=== PATIENT | male | born 1950 | race Two or more races ===

== ENCOUNTER 2021-05-27 12:24 | Inpatient (IN) | payer MEDICARE ==
[~2021-05-27] VITALS: Ht 175.3 cm; Wt 70.0 kg
[2021-05-27 14:08] LABS: Urine Bacteria NONE SEEN /hpf (None Seen); Urine Blood TRACE /uL (Negative); Urine Hyaline Cast FEW /lpf (0 - 2); Urine Specific Gravity 1.013 (1.001-1.035); Urine WBC 1 /hpf (0 - 3)
[2021-05-27] MEDS ORDERED: ONDANSETRON HCL 4 MG/2 ML VIAL IV ONE (14:15)
[2021-05-27 14:22] LABS: Albumin 3.8 g/dL (3.4-5.0); Calcium 9.7 mg/dL (8.5-10.1); Magnesium 1.9 mg/dL (1.6-2.6); Potassium 3.7 mmol/L (3.5-5.1)
[2021-05-27 14:26] LABS: Amphetamine Screen, Urine NEGATIVE (NEGATIVE); Barbiturate Scree,Urine NEGATIVE (NEGATIVE); Benzodiazephine Screen, Urine NEGATIVE (NEGATIVE); Cannabinoid Screen, Urine NEGATIVE (NEGATIVE); Cocaine Screen, Urine NEGATIVE (NEGATIVE); Phencyclidine Screen, Urine NEGATIVE (NEGATIVE)
[2021-05-27 14:29] LABS: BUN/Creatinine Ratio 17.3; Bilirubin, Total 1.3 mg/dL (0.2-1.0); Total Protein 7.5 g/dL (6.4-8.2)
[2021-05-27 14:34] LABS: Opiate Scree,Urine POSITIVE (NEGATIVE)
[2021-05-27 14:40] LABS: Basophils # (auto) 0 10 ^3/uL (0-0.2); Basophils % (auto) 0.4 % (0.0-2.0); Eosinophils # (auto) 0 10 ^3/uL (0-0.8); Hematocrit 39.5 % (41.0-53.0); Hemoglobin 14.2 g/dL (13.5-17.5); Lymphocytes # (auto) 0.5 10 ^3/uL (0.4-5.4); Lymphocytes % (auto) 6.4 % (10.0-50.0); Mean Corpuscular Hemoglobin 42.2 pg (28.0-32.0); Mean Corpuscular Volume 117.4 fL (80.0-100.0); Monocytes # (auto) 0.5 10 ^3/uL (0-1.3); Monocytes % (auto) 6.4 % (0.0-12.0); Neutrophils # (auto) 7.1 10 ^3/uL (1.6-8.6); Neutrophils % (auto) 86.8 % (37.0-80.0); Platelet Count (auto) 130 10^3/uL (140-450); Red Blood Cells 3.37 10^6/uL (4.5-5.90); Red Cell Distribution Width 18.9 % (11.8-14.3); White Blood Cell 8.2 10^3/uL (4.4-10.8)
[2021-05-27] MEDS ORDERED: THIAMINE HCL 100 MG TAB PO ONE (15:00)
[2021-05-27] MEDS ORDERED: ASPirin-EC 81 mg tab PO ONE (16:30)
[2021-05-27] MEDS ORDERED: NITROGLYCERIN 0.4 MG SL TAB SL PRN (17:45)
[2021-05-27] MEDS ORDERED: SODIUM CHLORIDE 0.9% 1,000 ML IV ONE (17:45)
[2021-05-27] MEDS ORDERED: ACETAMINOPHEN 500 MG TAB PO PRN (17:45)
[2021-05-27] MEDS ORDERED: MULTIPLE VITAMIN TAB PO ONE (17:45)
[2021-05-27] MEDS ORDERED: MORPHINE SULF INJ 2 MG/ML SYRINGE 1ML IV PRN (17:45)
[2021-05-27] MEDS: MORPHINE SULF INJ 2 MG/ML SYRINGE 1ML IV PRN ×2 (18:29→23:59)
[2021-05-27] MEDS: ONDANSETRON HCL 4 MG/2 ML VIAL IV PRN (18:29)
[2021-05-27] MEDS: chlordiazePOXIDE HCL 25 MG CAP PO SCH ×2 (18:31→23:42)
[2021-05-27 22:15] VITALS: BP 145/112
[2021-05-27] MEDS: PANTOPRAZOLE 40 MG/10 ML VIAL INJ IV SCH (23:42)
[2021-05-28] MEDS: LABETALOL HCL 5 MG/ML 4ML SYRINGE IV PRN (01:18)
[2021-05-28] MEDS: MORPHINE SULF INJ 2 MG/ML SYRINGE 1ML IV PRN ×4 (01:22→20:46)
[2021-05-28] MEDS: HYDROcodone-ACET 5/325MG TAB PO PRN ×3 (01:24→18:51)
[2021-05-28 05:39] VITALS: BP 141/89
[2021-05-28] MEDS ORDERED: PRAV20TA3 PO (05:57)
[2021-05-28] MEDS ORDERED: POTA-180 PO (05:57)
[2021-05-28] MEDS ORDERED: RIVA10TA PO (05:57)
[2021-05-28] MEDS ORDERED: METF-370 PO (05:57)
[2021-05-28] MEDS ORDERED: MORP30SU PO (05:57)
[2021-05-28] MEDS ORDERED: FURO40TA4 PO (05:57)
[2021-05-28] MEDS ORDERED: CARV6.2551 PO (05:57)
[2021-05-28] MEDS ORDERED: TIZA4CAP PO (05:57)
[2021-05-28] MEDS: chlordiazePOXIDE HCL 25 MG CAP PO SCH ×5 (06:21→20:45)
[2021-05-28 06:42] LABS: Albumin 3.5 g/dL (3.4-5.0); BUN/Creatinine Ratio 19.3; Bilirubin, Total 1.2 mg/dL (0.2-1.0); Calcium 9.6 mg/dL (8.5-10.1)
[2021-05-28 07:34] LABS: Basophils # (auto) 0 10 ^3/uL (0-0.2); Basophils % (auto) 0.4 % (0.0-2.0); Eosinophils # (auto) 0 10 ^3/uL (0-0.8); Eosinophils % (auto) 0.2 % (0.0-7.0); Hematocrit 37.8 % (41.0-53.0); Hemoglobin 13.7 g/dL (13.5-17.5); Lymphocytes # (auto) 0.8 10 ^3/uL (0.4-5.4); Lymphocytes % (auto) 9.6 % (10.0-50.0); Mean Corpuscular Hemoglobin 42.3 pg (28.0-32.0); Mean Corpuscular Hgb Conc. 36.2 g/dL (32.0-36.0); Mean Corpuscular Volume 116.9 fL (80.0-100.0); Monocytes # (auto) 0.6 10 ^3/uL (0-1.3); Monocytes % (auto) 7.3 % (0.0-12.0); Neutrophils # (auto) 6.9 10 ^3/uL (1.6-8.6); Neutrophils % (auto) 82.5 % (37.0-80.0); Nucleated Red Blood Cells % 0.1 %; Platelet Count (auto) 129 10^3/uL (140-450); Red Blood Cells 3.23 10^6/uL (4.5-5.90); Red Cell Distribution Width 19.2 % (11.8-14.3); White Blood Cell 8.4 10^3/uL (4.4-10.8)
[2021-05-28 08:00] VITALS: BP 141/92
[2021-05-28 09:03] VITALS: BP 149/84
[2021-05-28] MEDS: PANTOPRAZOLE 40 MG/10 ML VIAL INJ IV SCH ×2 (09:04→20:45)
[2021-05-28] MEDS: ONDANSETRON HCL 4 MG/2 ML VIAL IV PRN (09:05)
[2021-05-28] MEDS: THIAMINE HCL 100 MG TAB PO SCH (09:05)
[2021-05-28] MEDS: MULTIPLE VITAMIN TAB PO SCH (09:05)
[2021-05-28] MEDS ORDERED: POTASSIUM CHL 20 Meq TABLET PO ONE (12:15)
[2021-05-28 13:00] VITALS: BP 141/92
[2021-05-28] MEDS ORDERED: LORazepam 2MG/ML-1ML VIAL IV ONE (16:15)
[2021-05-28 16:33] LABS: Folate (Folic Acid) 4.58 ng/mL (5.38-24)
[2021-05-28 16:44] VITALS: BP 158/85
[2021-05-28] MEDS ORDERED: dilTIAZem 25 MG/5 ML VIAL IV ONE ×2 (21:19→22:30)
[2021-05-28] MEDS ORDERED: DIGOXIN (250MCG/ML) 2 ML AMPULE ONE (21:19)
[2021-05-28 22:00] VITALS: BP 159/88
[2021-05-28] MEDS ORDERED: DIGOXIN (250MCG/ML) 2 ML AMPULE IV ONE (22:30)
[2021-05-29 05:00] VITALS: BP 175/98
[2021-05-29] MEDS: LABETALOL HCL 5 MG/ML 4ML SYRINGE IV PRN (05:56)
[2021-05-29] MEDS: MORPHINE SULF INJ 2 MG/ML SYRINGE 1ML IV PRN (05:56)
[2021-05-29 06:00] LABS: Potassium 3.3 mmol/L (3.5-5.1)
[2021-05-29] MEDS: chlordiazePOXIDE HCL 25 MG CAP PO SCH ×5 (06:01→22:10)
[2021-05-29 06:13] LABS: Albumin 3.4 g/dL (3.4-5.0); BUN/Creatinine Ratio 16.4; Bilirubin, Total 0.9 mg/dL (0.2-1.0); Calcium 9.6 mg/dL (8.5-10.1); Total Protein 6.9 g/dL (6.4-8.2)
[2021-05-29 07:18] LABS: Basophils # (auto) 0 10 ^3/uL (0-0.2); Eosinophils # (auto) 0 10 ^3/uL (0-0.8); Monocytes # (auto) 0.6 10 ^3/uL (0-1.3); Red Blood Cells 3.44 10^6/uL (4.5-5.90); White Blood Cell 7.3 10^3/uL (4.4-10.8)
[2021-05-29 07:20] LABS: Basophils % (auto) 0.3 % (0.0-2.0); Eosinophils % (auto) 0.5 % (0.0-7.0); Hematocrit 40.6 % (41.0-53.0); Hemoglobin 14.5 g/dL (13.5-17.5); Lymphocytes % (auto) 13.3 % (10.0-50.0); Mean Corpuscular Hemoglobin 42.2 pg (28.0-32.0); Mean Corpuscular Hgb Conc. 35.8 g/dL (32.0-36.0); Mean Corpuscular Volume 118.2 fL (80.0-100.0); Monocytes % (auto) 8.8 % (0.0-12.0); Neutrophils # (auto) 5.6 10 ^3/uL (1.6-8.6); Neutrophils % (auto) 77.1 % (37.0-80.0); Platelet Count (auto) 132 10^3/uL (140-450); Red Cell Distribution Width 19.2 % (11.8-14.3)
[2021-05-29] MEDS: PANTOPRAZOLE 40 MG/10 ML VIAL INJ IV SCH ×2 (10:13→22:10)
[2021-05-29] MEDS: MULTIPLE VITAMIN TAB PO SCH (10:14)
[2021-05-29] MEDS: FOLIC ACID 1 MG TAB PO SCH (10:14)
[2021-05-29] MEDS: THIAMINE HCL 100 MG TAB PO SCH (10:14)
[2021-05-29] MEDS ORDERED: LACTULOSE 20Gm/30ML SOLN PO PRN (10:15)
[2021-05-29 12:47] VITALS: BP 154/89
[2021-05-29] MEDS ORDERED: POTASSIUM EFFERVESENT TAB 25 MEQ PO ONE (13:00)
[2021-05-29 13:06] VITALS: BP 124/77
[2021-05-29 16:56] VITALS: BP 132/80
[2021-05-29] MEDS: HYDROcodone-ACET 5/325MG TAB PO PRN (20:14)
[2021-05-29 22:00] VITALS: BP 149/95
[2021-05-29] MEDS: CARVEDILOL 3.125 MG TAB PO SCH (22:09)
[2021-05-29] MEDS: GABAPENTIN 300 MG CAP PO SCH (22:09)
[2021-05-29] MEDS: PRAVASTATIN SODIUM 20 MG TAB PO SCH (22:09)
[2021-05-30 05:00] VITALS: BP 159/90
[2021-05-30] MEDS: chlordiazePOXIDE HCL 25 MG CAP PO SCH ×3 (06:00→13:29)
[2021-05-30] MEDS: GABAPENTIN 300 MG CAP PO SCH ×3 (06:00→21:40)
[2021-05-30 06:55] LABS: Potassium 3.3 mmol/L (3.5-5.1)
[2021-05-30 07:02] LABS: Albumin 3.2 g/dL (3.4-5.0); BUN/Creatinine Ratio 14.9; Bilirubin, Total 0.7 mg/dL (0.2-1.0); Total Protein 6.4 g/dL (6.4-8.2)
[2021-05-30 07:20] LABS: Basophils # (auto) 0 10 ^3/uL (0-0.2); Basophils % (auto) 0.6 % (0.0-2.0); Eosinophils # (auto) 0.1 10 ^3/uL (0-0.8); Eosinophils % (auto) 0.9 % (0.0-7.0); Hematocrit 39.7 % (41.0-53.0); Hemoglobin 14.2 g/dL (13.5-17.5); Lymphocytes # (auto) 0.8 10 ^3/uL (0.4-5.4); Lymphocytes % (auto) 12.9 % (10.0-50.0); Mean Corpuscular Hemoglobin 41.7 pg (28.0-32.0); Mean Corpuscular Hgb Conc. 35.7 g/dL (32.0-36.0); Mean Corpuscular Volume 116.7 fL (80.0-100.0); Monocytes # (auto) 0.5 10 ^3/uL (0-1.3); Neutrophils # (auto) 4.7 10 ^3/uL (1.6-8.6); Neutrophils % (auto) 77.6 % (37.0-80.0); Nucleated Red Blood Cells % 0.2 %; Platelet Count (auto) 117 10^3/uL (140-450); Red Cell Distribution Width 18.9 % (11.8-14.3); White Blood Cell 6.1 10^3/uL (4.4-10.8)
[2021-05-30 09:00] VITALS: BP 128/84
[2021-05-30] MEDS: POTASSIUM EFFERVESENT TAB 25 MEQ PO SCH (09:44)
[2021-05-30] MEDS: FOLIC ACID 1 MG TAB PO SCH (09:44)
[2021-05-30] MEDS: RIVAROXABAN 10 MG TAB PO SCH (09:45)
[2021-05-30] MEDS: FUROSEMIDE 40 MG TAB PO SCH (09:45)
[2021-05-30] MEDS: PANTOPRAZOLE 40 MG/10 ML VIAL INJ IV SCH ×2 (09:46→21:38)
[2021-05-30] MEDS: CARVEDILOL 3.125 MG TAB PO SCH ×2 (09:46→21:39)
[2021-05-30] MEDS: THIAMINE HCL 100 MG TAB PO SCH (09:46)
[2021-05-30] MEDS: MULTIPLE VITAMIN TAB PO SCH (09:47)
[2021-05-30 13:00] VITALS: BP 136/91
[2021-05-30 17:00] VITALS: BP 136/91
[2021-05-30] MEDS ORDERED: SODIUM CHLORIDE 0.9% 1,000 ML IV ONE (18:15)
[2021-05-30 20:38] VITALS: BP 120/56
[2021-05-30] MEDS: PRAVASTATIN SODIUM 20 MG TAB PO SCH (21:40)
[2021-05-30 22:00] VITALS: BP 130/86
[2021-05-31 05:00] VITALS: BP 158/98
[2021-05-31] MEDS: GABAPENTIN 300 MG CAP PO SCH ×3 (05:49→22:00)
[2021-05-31 07:08] LABS: Basophils # (auto) 0 10 ^3/uL (0-0.2); Basophils % (auto) 0.2 % (0.0-2.0); Eosinophils # (auto) 0 10 ^3/uL (0-0.8); Eosinophils % (auto) 0.3 % (0.0-7.0); Hemoglobin 15.2 g/dL (13.5-17.5); Lymphocytes # (auto) 0.8 10 ^3/uL (0.4-5.4); Lymphocytes % (auto) 8.6 % (10.0-50.0); Mean Corpuscular Hemoglobin 42.6 pg (28.0-32.0); Mean Corpuscular Volume 117.9 fL (80.0-100.0); Monocytes # (auto) 0.5 10 ^3/uL (0-1.3); Monocytes % (auto) 6.1 % (0.0-12.0); Neutrophils # (auto) 7.5 10 ^3/uL (1.6-8.6); Neutrophils % (auto) 84.8 % (37.0-80.0); Platelet Count (auto) 135 10^3/uL (140-450); Red Blood Cells 3.57 10^6/uL (4.5-5.90); Red Cell Distribution Width 18.5 % (11.8-14.3); White Blood Cell 8.8 10^3/uL (4.4-10.8)
[2021-05-31 07:18] LABS: Calcium 9.9 mg/dL (8.5-10.1); Potassium 3.4 mmol/L (3.5-5.1)
[2021-05-31 07:23] LABS: BUN/Creatinine Ratio 20.8; Total Protein 6.8 g/dL (6.4-8.2)
[2021-05-31 09:00] VITALS: BP 163/91
[2021-05-31] MEDS: PANTOPRAZOLE 40 MG/10 ML VIAL INJ IV SCH ×2 (09:18→22:21)
[2021-05-31] MEDS: FOLIC ACID 1 MG TAB PO SCH (09:18)
[2021-05-31] MEDS: THIAMINE HCL 100 MG TAB PO SCH (09:18)
[2021-05-31] MEDS: CARVEDILOL 3.125 MG TAB PO SCH ×2 (09:19→22:22)
[2021-05-31] MEDS: FUROSEMIDE 40 MG TAB PO SCH (09:19)
[2021-05-31] MEDS: POTASSIUM EFFERVESENT TAB 25 MEQ PO SCH (09:19)
[2021-05-31] MEDS: RIVAROXABAN 10 MG TAB PO SCH (09:20)
[2021-05-31] MEDS: MULTIPLE VITAMIN TAB PO SCH (09:20)
[2021-05-31] MEDS ORDERED: POTASSIUM EFFERVESENT TAB 25 MEQ PO ONE (11:45)
[2021-05-31] MEDS: LABETALOL HCL 5 MG/ML 4ML SYRINGE IV PRN (12:37)
[2021-05-31 13:00] VITALS: BP 167/110
[2021-05-31 17:00] VITALS: BP 133/84
[2021-05-31] MEDS: HYDROcodone-ACET 5/325MG TAB PO PRN (19:16)
[2021-05-31 22:00] VITALS: BP 134/94
[2021-05-31] MEDS: PRAVASTATIN SODIUM 20 MG TAB PO SCH (22:21)
[2021-06-01 05:00] VITALS: BP 116/69
[2021-06-01] MEDS: GABAPENTIN 300 MG CAP PO SCH ×3 (05:59→21:46)
[2021-06-01 06:06] LABS: Calcium 9.5 mg/dL (8.5-10.1); Potassium 4.2 mmol/L (3.5-5.1)
[2021-06-01 06:12] LABS: Albumin 2.3 g/dL (3.4-5.0); BUN/Creatinine Ratio 22.5; Bilirubin, Total 3.6 mg/dL (0.2-1.0); Total Protein 6.1 g/dL (6.4-8.2)
[2021-06-01 06:42] LABS: Basophils # (auto) 0 10 ^3/uL (0-0.2); Basophils % (auto) 0.3 % (0.0-2.0); Eosinophils # (auto) 0 10 ^3/uL (0-0.8); Eosinophils % (auto) 0.1 % (0.0-7.0); Hematocrit 41.2 % (41.0-53.0); Hemoglobin 14.5 g/dL (13.5-17.5); Lymphocytes # (auto) 0.6 10 ^3/uL (0.4-5.4); Lymphocytes % (auto) 6.5 % (10.0-50.0); Mean Corpuscular Hemoglobin 41.5 pg (28.0-32.0); Mean Corpuscular Hgb Conc. 35.1 g/dL (32.0-36.0); Mean Corpuscular Volume 118.1 fL (80.0-100.0); Monocytes # (auto) 0.5 10 ^3/uL (0-1.3); Monocytes % (auto) 4.9 % (0.0-12.0); Neutrophils # (auto) 8.6 10 ^3/uL (1.6-8.6); Neutrophils % (auto) 88.2 % (37.0-80.0); Nucleated Red Blood Cells % 0.1 %; Platelet Count (auto) 130 10^3/uL (140-450); Red Blood Cells 3.49 10^6/uL (4.5-5.90); Red Cell Distribution Width 18.7 % (11.8-14.3); White Blood Cell 9.7 10^3/uL (4.4-10.8)
[2021-06-01 09:00] VITALS: BP 105/60
[2021-06-01] MEDS: THIAMINE HCL 100 MG TAB PO SCH (09:21)
[2021-06-01] MEDS: PANTOPRAZOLE 40 MG/10 ML VIAL INJ IV SCH ×2 (09:21→21:45)
[2021-06-01] MEDS: CARVEDILOL 3.125 MG TAB PO SCH ×2 (09:21→21:46)
[2021-06-01] MEDS: FOLIC ACID 1 MG TAB PO SCH (09:21)
[2021-06-01] MEDS: MULTIPLE VITAMIN TAB PO SCH (09:22)
[2021-06-01] MEDS: POTASSIUM EFFERVESENT TAB 25 MEQ PO SCH (09:22)
[2021-06-01] MEDS: RIVAROXABAN 10 MG TAB PO SCH (09:22)
[2021-06-01] MEDS: FUROSEMIDE 40 MG TAB PO SCH (09:22)
[2021-06-01 09:38] VITALS: BP 116/64
[2021-06-01 13:00] VITALS: BP 123/80
[2021-06-01] MEDS: MORPHINE SULF INJ 2 MG/ML SYRINGE 1ML IV PRN (16:28)
[2021-06-01 17:00] VITALS: BP 112/75
[2021-06-01] MEDS: PRAVASTATIN SODIUM 20 MG TAB PO SCH (21:46)
[2021-06-01 22:00] VITALS: BP 110/72
[2021-06-02 05:00] VITALS: BP 78/47
[2021-06-02] MEDS: GABAPENTIN 300 MG CAP PO SCH ×2 (06:00→12:40)
[2021-06-02] MEDS ORDERED: LORazepam 2MG/ML-1ML VIAL IV PRN (07:30)
[2021-06-02 08:05] VITALS: BP 90/53
[2021-06-02 08:27] VITALS: BP 90/53
[2021-06-02] MEDS: MORPHINE SULF INJ 2 MG/ML SYRINGE 1ML IV PRN ×3 (09:25→18:05)
[2021-06-02] MEDS: FUROSEMIDE 40 MG TAB PO SCH (10:00)
[2021-06-02] MEDS: MULTIPLE VITAMIN TAB PO SCH (10:00)
[2021-06-02] MEDS: FOLIC ACID 1 MG TAB PO SCH (10:00)
[2021-06-02] MEDS: POTASSIUM EFFERVESENT TAB 25 MEQ PO SCH (10:00)
[2021-06-02] MEDS: THIAMINE HCL 100 MG TAB PO SCH (10:00)
[2021-06-02] MEDS: RIVAROXABAN 10 MG TAB PO SCH (10:00)
[2021-06-02] MEDS: PANTOPRAZOLE 40 MG/10 ML VIAL INJ IV SCH (10:00)
[2021-06-02] MEDS: CARVEDILOL 3.125 MG TAB PO SCH (10:00)
[2021-06-02] MEDS ORDERED: AMIODARONE 450mg/250ml AE 250 ML IV SCH ×2 (11:00→17:00)
[2021-06-02 12:22] VITALS: BP 52/37
[2021-06-02 16:28] VITALS: BP 70/48
== END 2021-06-02 19:45 | DRG 640 ==
LOC: ER 12:24 → EDBD 12:24 → TELE 17:45 → TELE-WESTW 20:32
PROVIDERS: ADMIT Nurse Practitioner Acute Care; ATTEND Internal Medicine
PROC: 5A09457 Assistance with Respiratory Ventilation, 24-96 Consecutive Hours, Continuous Positive Airway Pressure (ICD-10-PCS; principal; 2021-06-01)
DX: E87.1 Hypo-osmolality and hyponatremia (principal); J96.01 Acute respiratory failure with hypoxia; I21.A1 Myocardial infarction type 2; N17.0 Acute kidney failure with tubular necrosis; K92.2 Gastrointestinal hemorrhage, unspecified; D68.69 Other thrombophilia; I13.0 Hypertensive heart and chronic kidney disease with heart failure and stage 1 through stage 4 chronic kidney disease, or unspecified chronic kidney disease; G99.2 Myelopathy in diseases classified elsewhere; I48.92 Unspecified atrial flutter; Z66 Do not resuscitate; R29.6 Repeated falls; E78.5 Hyperlipidemia, unspecified; E87.6 Hypokalemia; I48.0 Paroxysmal atrial fibrillation; Z20.822 Contact with and (suspected) exposure to COVID-19; E11.22 Type 2 diabetes mellitus with diabetic chronic kidney disease; E55.9 Vitamin D deficiency, unspecified; I50.9 Heart failure, unspecified; K59.00 Constipation, unspecified; K70.9 Alcoholic liver disease, unspecified; E11.21 Type 2 diabetes mellitus with diabetic nephropathy; M48.02 Spinal stenosis, cervical region; N18.9 Chronic kidney disease, unspecified; Z51.5 Encounter for palliative care; Z79.01 Long term (current) use of anticoagulants; Z79.84 Long term (current) use of oral hypoglycemic drugs; Z86.718 Personal history of other venous thrombosis and embolism
CPT/HCPCS: 36415; 36600; 70450; 70551; 71045; 72125; 74176; 80053; 80307; 80320; 81001; 82306; 82607; 82746; 82805; 82962; 83036; 83735; 83880; 84443; 84484; 85025; 85049; 86141; 87086; 87426; 93005; 93306; 94660; 96361; 96374; 97110; 97116; 97163; 97530; C9113; G0378; J2405; J3490